=== PATIENT | female | born 1945 | race Caucasian/White ===

== ENCOUNTER 2017-04-14 06:08 | Day surgery (SDC) | payer MEDICARE, OTHER ==
[~2017-04-14] VITALS: Ht 160 cm; Wt 67.1 kg
[~2017-04-14 06:08] MED LIST: LISI10TA4 PO
[2017-04-14] MEDS ORDERED: BACITRACIN PWD 50,000 UNITS VIAL As Ordered ONE (06:36)
[2017-04-14] MEDS ORDERED: BUPIVACAINE HCL 0.5% 30 ML VIAL As Ordered ONE (06:36)
[2017-04-14] MEDS ORDERED: LIDOCAINE 2% MDV 20 ML VIAL As Ordered ONE (06:36)
[2017-04-14] MEDS ORDERED: dexameTHASONE 4 MG/ML 1ML VIAL (J1100) As Ordered ONE (06:36)
[2017-04-14] MEDS ORDERED: LIDOCAINE 2% INJ 100 MG/5 ML SDV (FOR ANES.) As Ordered ONE (07:04)
[2017-04-14] MEDS ORDERED: MIDAZOLAM INJ 2 MG/2 ML VIAL (J2250) As Ordered ONE (07:04)
[2017-04-14] MEDS ORDERED: PROPOFOL 200 MG/20 ML VIAL As Ordered ONE (07:04)
[2017-04-14] MEDS ORDERED: fentaNYL 100 MCG/2 ML INJECTION (J3010) As Ordered ONE (07:05)
[2017-04-14] MEDS ORDERED: NEOSPORIN GU IRRIG 20 ML VIAL As Ordered ONE (07:17)
[2017-04-14] MEDS ORDERED: LR 1,000 ML IV ONE (07:30)
[2017-04-14] MEDS ORDERED: ONDANSETRON 4MG/2ML VIAL (J2405) As Ordered ONE (07:54)
[2017-04-14] MEDS ORDERED: NORCO, ANEXSIA 5/325MG TABLET (HYDROcodone/ACETAMINOPHEN) PO ONE (10:15)
--- NOTE | 2017-04-14 10:34 | REP ---
RIGHT FOOT COMPLETE: 04/14/2017. CLINICAL HISTORY: Postoperative bunionectomy right foot. Three views are provided. There are no prior studies. There is osteotomy and bunionectomy of the distal 1st metatarsal with a lag screw across the osteotomy site. There is also a lag screw in the distal 2nd metatarsal head and there are fusions of the PIP joints of the 2nd and 3rd toe with metallic hardware across the joint. No other acute or significant finding. Signed by David Vargas MD 04/14/2017 07:33 P
[2017-04-14 12:45] VITALS: BP 164/68
--- NOTE | 2017-04-14 14:44 | RO ---
DATE OF PROCEDURE: 04/14/2017DATE OF PROCEDURE: PREPROCEDURE DIAGNOSES: Hallux valgus metatarsus primus varus deformity, right foot. Long second metatarsal right foot. Hammertoe deformity second toe right foot. Hammertoe deformity of the third toe, right foot. POSTPROCEDURE DIAGNOSES: Hallux valgus metatarsus primus varus deformity, right foot. Long second metatarsal right foot. Hammertoe deformity second toe right foot. Hammertoe deformity of the third toe, right foot. PROCEDURE: 1. Cheli bunionectomy internal screw fixation, 3.0 mm x 20 mm times one, right foot. 2. Shortening second metatarsal with osteotomy and internal screw fixation 2.5 mm x 12 mm times one. 3. Proximal interphalangeal joint fusion with DigiFuse 2.0 x 10 degree angled. 4. Fusion with DigiFuse 2.0 x 10 degree short, right foot. SURGEON: Dr. Pineda Clements. DATA MANAGEMENT MANAGER: None. ANESTHESIA: Local MAC IRRIGATION: Dilute bacitracin, neomycin, polymyxin B solution. HEMOSTASIS: Angle pneumatic tourniquet at 200 mmHg for 87 minutes. HARDWARE UTILIZED: Right Dart-Fire 3.0 x 20 and a 2.5 x 12 cannulated compression screw and a DigiFuse 2.0 x 10 degree angle and a 2.0 x 10 degree angled short. DESCRIPTION OF PROCEDURE: On 04/14/2017, this 71-year-old white female was taken from her hospital room to the operating room and placed on the operating table in supine position. Following the induction of IV sedation, local and regional anesthesia, the right lower extremity was prepped and draped in the usual aseptic manner. The right lower extremity was elevated to 45 degrees in the horizontal plane for the purpose of preoperative exsanguination of the limb. During this 3 minute time period, an ankle pneumatic tourniquet was applied just proximal to the medial and lateral malleolus over a well padded site. To further exsanguinate the limb, a Kt's Esmarch bandage was placed circumferentially extending from the digits to the distal edge of the ankle pneumatic tourniquet. The ankle pneumatic tourniquet was rapidly inflated 200 mmHg for the purpose of intraoperative hemostasis. Esmarch bandage removed. Right lower extremity was returned to the operating room table, sterile draping was completed and the following procedure was performed: CHELI BUNIONECTOMY INTERNAL SCREW FIXATION 3.0 MM X 20 MM TIMES ONE, RIGHT FOOT : Attention was directed to the patients right foot where there was noted to be a hallux valgus deformity. At this time, a 5 cm incision was placed over the first metatarsophalangeal joint medial to the extensor tendon. The incision was deepened through subcutaneous tissues and all coursing venous tributaries were identified, underscored, clamped, cut, ligated, and electrocoagulated as necessary. A linear capsulotomy was then performed in the same plane as the original incision and the capsular periosteal structures were then dissected free in one continuous layer dorsally, medially and laterally thus creating a capsulare periosteal type envelope. This lead into view the hypertrophied medial eminence on the first metatarsal, which was osteotomized from distal to proximal through and through exiting medial to the sesamoidal groove. Attention was then directed to the first intermetatarsal space where the dissection was carried down to the level of fibular sesamoid. This was sharply dissected free to mobilize the sesamoids. Attention was directed to the medial surface of the first metatarsal where a V-shaped osteotomy was performed with a long plantar and short dorsal wing. Upon creation of this osteotomy, the capital fragment was transposed approximately 30-40% of the width of the shaft of the first metatarsal and fixated with a 3.0 x 20 mm cannulated compression screw across the osteotomy site and the osteotomy was stable in all three cardinal planes. It did not penetrate the inferior cartilage under direct visualization. The redundant cortical spike was then osteotomized from dorsal to plantar through and through and extirpated from the wound in toto. The medial surface was rasped to a smooth contour. The wound was flushed with copious amounts of dilute bacitracin, neomycin and polymyxin B solution. Attention was then directed towards closure where the capsular structures were coapted and maintained utilizing #2-0 Monocryl in a simple interrupted type fashion. Subcutaneous tissue coapted and maintained utilizing #4-0 Monocryl in a simple interrupted type fashion. Skin incision was coapted and maintained utilizing #5-0 Monocryl in a continuous subcuticular type fashion. Attention was then directed to the patient's 2nd metatarsal where the following procedure was performed. SHORTENING SECOND METATARSAL OSTEOTOMY INTERNAL SCREW FIXATION, 2.0 MM X 12 MM TIMES ONE RIGHT FOOT: Attention was directed to the patient's right foot where an incision was placed into the 2nd interdigital space extending in a slightly medial direction extending over the 2nd metatarsal shaft. The incision was deepened through the subcutaneous tissues and the extensor tendons were retracted in a lateral direction. A linear capsulotomy was then performed over the 2nd metatarsal and a Yordan osteotomy was performed shortening the 2nd metatarsal approximately 5 mm and then fixated with a 2.5 x 12 mm cannulated compression screw. Utilizing a rongeur, the dorsal spike was then rongeured and filed flush with a hand-held rasp. The wound was flushed with copious amounts of dilute bacitracin, neomycin and polymyxin B solution. The capsular structures were coapted and maintained utilizing #2-0 Monocryl in a simple interrupted type fashion. The following procedure was then performed. PROXIMAL INTERPHALANGEAL JOINT FUSION WITH DIGIFUSE 2.0 X 10 DEGREE ANGLED, RIGHT FOOT: Attention was directed to the patient's right foot where two semi-elliptical incisions were placed over the proximal interphalangeal joint and a skin wedge was removed. Transverse tenotomy and capsulotomy was then performed and utilizing tenotomy scissors, the extensor tendon was then freed into the more proximal surgical site over the second metatarsal freely mobilizing the extensor expansion and dash. The medial and lateral, collateral ligaments were sharply dissected free from the head of the proximal phalanx. Utilizing a power saw, an osteotomy was performed from the level of the anatomical neck of the proximal phalanx from dorsal to planar medial to lateral through and through and extirpated from the wound in toto. Cartilages was then removed from the base of the middle phalanx. The wound was flushed with copious amounts of dilute bacitracin, neomycin and polymyxin B solution. Attention was directed towards fixation where utilizing a DigiFuse at 2.0 x 10 degree angled implant was placed across the proximal interphalangeal joint. Utilizing #3-0 braided nylon loop suture, a four-stranded Gonzalez repair was performed over the extensor tendon. The subcutaneous tissues at the 2nd metatarsal and toe were then coapted and maintained with #4-0 Monocryl in a simple interrupted type fashion. Skin incision was coapted and maintained using #4-0 Prolene in a simple interrupted horizontal mattress type fashion. Attention was then directed to 3rd toe where the following procedure was performed. PROXIMAL INTERPHALANGEAL JOINT FUSION, THIRD TOE RIGHT FOOT: Attention was directed to the patient's right foot where two semi-elliptical incisions were placed over the proximal interphalangeal joint and a skin wedge was removed. Transverse tenotomy and capsulotomy was then performed and utilizing tenotomy scissors, the extensor expansion and dash was released proximally. The medial and lateral, collateral ligaments were sharply dissected free from the head of the proximal phalanx. Utilizing a power saw, an osteotomy was performed from the level of the anatomical neck of the proximal phalanx from dorsal to planar medial to lateral through and through and extirpated from the wound in toto. Cartilage was then removed from the base of the middle phalanx with a power saw. The wound was flushed with copious amounts of dilute bacitracin, neomycin and polymyxin B solution. Utilizing a DigiFuse at 2.0 x 10 degree angled, size short, the proximal interphalangeal joint was fixated in the standard fashion. Utilizing #4-0 braided nylon loop suture, a four-stranded Gonzalez repair was performed over the extensor tendon. This was additionally reinforced with a peripheral stitch with #4-0 braided nylon. The skin was coapted and maintained with #4-0 Prolene in a simple interrupted horizontal mattress type fashion. Attention was directed towards bandaging where a sterile compression bandage of was applied consisting of Adaptic, 4 x 4s, 4 x 4 splints, Jarek, Kerlix and Coban. The ankle pneumatic tourniquet was rapidly deflated and instantaneous capillary filling time was noted in digits 1-5 of the patients right foot. The patient having apparently tolerated the surgical procedure well was taken from the operating room (OR) to the recovery room with vital signs stable and the patient afebrile for further monitoring by the anesthesia department. All surgical specimens removed during the operative procedure were sent to pathology for gross and microscopic examination. Postoperative instructions will be given upon discharge. RAJI
== END 2017-04-14 12:46 | disposition home or self-care (01) ==
LOC: M SDC 06:08
PROVIDERS: ATTEND Podiatrist
DX: M20.5X1 Other deformities of toe(s) (acquired), right foot (principal); M20.41 Other hammer toe(s) (acquired), right foot; M20.21 Hallux rigidus, right foot; I10 Essential (primary) hypertension; E78.5 Hyperlipidemia, unspecified; M19.90 Unspecified osteoarthritis, unspecified site; N39.3 Stress incontinence (female) (male); Z79.899 Other long term (current) drug therapy; Z79.82 Long term (current) use of aspirin
CPT/HCPCS: 28285; 28296; 28308; 73630; 88300; 97116; C1713; G8978; G8979; G8980; J0690; J1100; J2250; J2405; J3010

== ENCOUNTER → 2025-01-17 | Outpatient (REF) | payer MEDICARE, OTHER ==
[~2025-01-17] MED LIST changes: +LISI10TA22 PO; -LISI10TA4 PO
== END ==
LOC: M SFHCWAGY 10:04
PROVIDERS: ATTEND Obstetrics & Gynecology
DX: Z12.72 Encounter for screening for malignant neoplasm of vagina (principal)